=== PATIENT | female | born 1985 | race Caucasian/White ===

== ENCOUNTER 2017-01-18 06:58 | Day surgery (SDC) | payer OTHER ==
--- NOTE | 2017-01-17 22:19 | PREOPHP ---
DATE OF ADMISSION: 01/18/2017 REASON FOR ADMISSION: The patient is to have a kidney biopsy on 01/18/17 CHIEF COMPLAINT: Lower extremity edema. HISTORY OF PRESENT ILLNESS: This 31-year-old female was first seen by me on because of proteinuria and lower extremity swelling. The patient was in her usual state of health until approximately 2 weeks prior to seeing me when she developed lower extremity swelling. The patient, at the time that I saw her, was 25 weeks . This was her first . Prior to seeing me, the patient was found to have significant proteinuria by her automobile sales consultant, Dr. Gerardo. The patient had a 24-hour urine collection which showed 8339 mg of protein in a 24-hour urine collection. At the time the patient first saw me , she was feeling well except for lower extremity edema. She had no headache, visual changes, epigastric pain. She had denied a history of hypertension, prior kidney disease, prior proteinuria, family history of kidney disease. The patient denied a history of diabetes mellitus. The patient, when I first saw her, had normal kidney function. Her serum creatinine was 0.63. The patient also had a normal platelet count, normal liver enzymes and a normal uric acid. Her urinalysis did show 3+ proteinuria with 6 to 10 WBCs per high-power field, 3 to 10 RBCs. The patient was eventually started on furosemide 40 mg a day, Lovenox 40 mg subcutaneous daily, vitamins and aspirin 162 mg a day. The patient eventually went on to 37 weeks' gestation and delivered a baby boy on 01/05/2017 at [facility] by section. During her , the patient was also followed by Dr. Escobar, a perinatologist. I saw the patient last week on 01/12/2017. This was 1 week post-delivery. She had lost 25 pounds but continued to have lower extremity edema. She had a urinalysis done which showed a large amount of protein. She has also developed hypertension. I started her on labetalol 100 mg twice a day which was increased to 200 mg twice a day. The furosemide was increased to 40 mg twice a day. The patient stopped Lovenox and aspirin. PAST MEDICAL HISTORY: Remarkable for nephrotic syndrome, hypertension, lower extremity edema. ALLERGIES: SHE HAS NO KNOWN DRUG ALLERGIES. PAST SURGICAL HISTORY: Nasal septoplasty, 01/05/2017. FAMILY HISTORY: Both parents are alive. Mother has hypertension, hyperlipidemia and breast cancer. SOCIAL HISTORY: The patient does not smoke cigarettes nor drink alcohol. 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 REVIEW OF SYSTEMS: CONSTITUTIONAL: No chills, no fever, no weakness. She has had weight loss since her delivery. OPHTHALMOLOGIC: Negative. EARS, NOSE AND THROAT: Negative. CARDIORESPIRATORY: Negative. She denies any chest pain or shortness of breath. She does have some lower extremity edema. NEUROLOGIC: Occasional headache. UROLOGIC: She denies any dysuria. HEMATOLOGIC: She denies any bleeding. PHYSICAL EXAMINATION: GENERAL: At this time reveals a well-developed female in no apparent distress. VITAL SIGNS: Temperature 98.5, heart rate of 98, blood pressure 140/100. HEAD: Normocephalic. EYES: Extraocular muscles intact. NOSE AND MOUTH: Normal. NECK: Supple, no neck vein distention. LUNGS: Clear to auscultation. HEART: Regular rhythm. No murmurs, gallops or rubs. ABDOMEN: Soft, nontender, no masses or megaly. EXTREMITIES: Pedal edema 3+, pitting edema 3+. NEUROLOGIC: Grossly intact. Cranial nerves intact II-XII. Muscle strength 5/ 5 throughout. Normal gait. No obvious neurologic deficits. IMPRESSION: Nephrotic syndrome, now with acute renal failure. Her latest labs showed a serum creatinine of 2.74 which is an increase from 3 days previous. This represents a decrease in her renal function. The patient is putting out urine, at least 1800 mL of fluid per day on the Lasix. The labetalol is keeping her blood pressure around 140/80. I did recommend to the patient that she have a percutaneous kidney biopsy under CT scan guidance. She agrees. I explained to her the procedure and the potential problems, including bleeding, infection, etc. She agrees to proceed with the biopsy. I told her that once the biopsy is done, then I will probably recommend a large dose of prednisone daily, 40 to 60 mg a day. At that time, hopefully the results of the biopsy will be known and other recommendations can be made. I will follow the patient closely after the surgery and will monitor her renal function, proteinuria, and blood pressure . Dictated By: ОЛЕГ DARNELL MD, ND/ROSY Conf#: [id number] [facility]#: [id number] MTDD
[~2017-01-18] VITALS: Ht 165.1 cm; Wt 88.0 kg
[2017-01-18] MEDS ORDERED: LABE100T3 PO (07:53)
[2017-01-18] MEDS ORDERED: FURO-110 PO (07:54)
[2017-01-18] MEDS ORDERED: HYDR-906 PO (07:57)
[2017-01-18] MEDS ORDERED: ENOX40DI14 SC (07:57)
[2017-01-18] MEDS ORDERED: SOD CHLORIDE 0.9% 1,000 ML IV SCH (08:00)
[2017-01-18 08:13] VITALS: Ht 165.1 cm; Wt 88.0 kg
[2017-01-18 08:18] VITALS: BP 147/95; PULSE 82; RESP 20
[2017-01-18] MEDS ORDERED: LIDOCAINE 1% (MDV) 20 ML INJ ONE ×2 (10:30→11:36)
[2017-01-18] MEDS ORDERED: MIDAZOLAM 1 MG/ML 2 ML INJ ONE ×2 (10:30→12:01)
[2017-01-18] MEDS ORDERED: FENTAnyl 50 MCG/ML VIAL ONE (10:30)
[2017-01-18] MEDS ORDERED: SOD CHLORIDE 0.9% 500 ML ONE (10:31)
[2017-01-18] MEDS ORDERED: GELATIN 12MM X 7 MM SPONGE ONE (12:01)
[2017-01-18 13:13] VITALS: BP 142/99; PULSE 85; RESP 14
[2017-01-18 13:53] VITALS: BP 149/94; PULSE 82; RESP 16
[2017-01-18 15:18] VITALS: BP 150/78; PULSE 73; RESP 16
--- NOTE | 2017-01-18 15:47 | RADRPT ---
PROCEDURE: CT guided right renal biopsy. CLINICAL INDICATION: Medical renal disease. Nephrotic syndrome. TECHNIQUE: Informed consent was obtained. The procedure, risks, benefits, complications and alternatives were explained to the patient. Risks including bleeding and infection were explained. The patient unders tood and was willing to proceed. A procedural pause was performed. The patient's name, date of emanuel h, and procedure to be performed were verified. One or more of the following dose reduction techni ques were used: Automated exposure control, adjustment of the mA and/or kV according to patient size , use of iterative reconstruction technique. Using local anesthetic, sterile technique and CT guidance, an 18-gauge automated core biopsy needle was used to biopsy the lower pole of the right kidney. Multiple passes were made. Adequate tissue was obtained according to the pathologist present during the procedure. Multiple Gelfoam pledgets m ixed with normal saline were then embolized through the outer cannula of the biopsy needle into the biopsy tract while the needle was removed. A postprocedural scan was performed. A dressing was applied. The patient tolerated procedure well. COMPARISON: None. FINDINGS: Initial images demonstrate the tip of the needle at the posterior margin of the lower pole of the ri ght kidney. Post biopsy images demonstrate no immediate complication. The Gelfoam is noted in the biopsy tract. IMPRESSION: 1. Successful CT guided biopsy of the right kidney for medical renal disease. RPTAT: QQ .Jaden Martini MD, Date Time Electronically viewed and signed by .Jaden Martini MD, MD on 01/18/2017 15:47 .R/
--- NOTE | 2017-01-19 09:46 | PREOPHP ---
DATE OF ADMISSION: 01/18/2017 This patient is being admitted electively on 01/18/2017 for a kidney biopsy. CHIEF COMPLAINT: Lower extremity swelling. HISTORY OF PRESENT ILLNESS: This 31-year-old female was first seen by me on 10/13/2016 because of p roteinuria and lower extremity swelling. The patient was in her usual state of health until 2 weeks prior to seeing me, when she developed some lower extremity swelling. The patient, at the time I s aw her, was 25 weeks . This was her first . She was found to have proteinuria. S he had a 24-hour urine protein done by her [employer] commerce consultant, Dr. Gerardo, which showed 8339 mg of prote in per 24 hours. At the time I saw the patient, she was feeling well except for the lower extremity edema. She had no headache, visual changes, epigastric pains. She denied a history of hypertensio n, prior kidney disease, family history of kidney disease or history of diabetes mellitus. The ishan ent had normal renal function when I initially saw her. Her serum creatinine was 0.63. She also reyes d a normal platelet count, normal liver enzymes, normal uric acid. Her urinalysis did show 3+ prote inuria with 6 to 10 WBCs, 3 to 10 RBCs. The patient was eventually started on furosemide 40 mg a da y, Lovenox 40 mg subQ daily, vitamins, aspirin 162 mg a day. She was eventually able to go on to a 37-week gestation and delivered a baby boy on 01/05/2017 at [facility] by section. The patient was also followed during her by Dr. Escobar, perinatologist. The patient was seen by me last week on 01/12/2017. She was 1 week post-delivery. She had lost 25 pounds, but con tinued to have lower extremity edema. She continues to have a large amount of proteinuria and has a lso developed hypertension. When I saw her last week, she was started on labetalol 100 mg twice a d ay. The furosemide was increased to 40 mg twice a day. PAST MEDICAL HISTORY: Remarkable for nephrotic syndrome. ALLERGIES: SHE HAS NO KNOWN DRUG ALLERGIES. PAST SURGICAL HISTORY: Septoplasty, 01/05/2017. FAMILY HISTORY: Both parents are alive. Mother has hypertension, hyperlipidemia and breast cancer. SOCIAL HISTORY: The patient does not smoke cigarettes or drink alcohol. 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 REVIEW OF SYSTEMS: CONSTITUTIONAL: No chills, no fever, no weakness. She has had weight loss since the delivery of th e baby. OPHTHALMOLOGIC: Negative. EARS, NOSE AND THROAT: Negative. CARDIORESPIRATORY: Negative. She does have lower extremity edema. NEUROLOGIC: Negative. UROLOGIC: She denies any dysuria. PHYSICAL EXAMINATION: GENERAL: At this time, reveals a well-developed female in no apparent distress. VITAL SIGNS: Temperature 98.5, heart rate 98, blood pressure 140/100. HEAD: Normocephalic. EYES: Extraocular muscles intact. NOSE AND MOUTH: Normal. NECK: Supple. No neck vein distention. LUNGS: Clear to auscultation. HEART: Regular rhythm. No murmurs, gallops or rubs. ABDOMEN: Soft, nontender. No masses or megaly. EXTREMITIES: 3+ pedal edema. NEUROLOGIC: Grossly intact. No obvious neurologic deficits. IMPRESSION: This patient continues to have nephrotic syndrome with significant proteinuria, low ser um albumin and edema. Her blood pressure has also started to increase. She does have occasional he adaches, but no other signs or symptoms of preeclampsia. I recommended to the patient that she have laboratory tests done. Those laboratory tests were done last week and showed a serum creatinine of 2.44, which shows an increase from previous and therefore a decrease in her renal function. I addi mmended to her that she have laboratory tests repeated on 01/16/2017, and her serum creatinine is no w up to 2.74. She is putting out about 1800 mL of fluid per day on Lasix. The labetalol is keeping her blood pressure around 140/80. I have recommended to her that she have a kidney biopsy done. S he is agreeable. This can hopefully be done on 01/18/2017. I also told her that after she has the biopsy, that I wanted to start her on high-dose prednisone in anticipation of the kidney biopsy. 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 Possible pathologies could be min imal change disease, membranous nephropathy, mesangial proliferative disease, focal segmental glomer ulosclerosis. PLAN: Arrange for patient to have outpatient kidney biopsy by CT scan guidance at [facility] as soon as it can be arranged. Dictated By: ОЛЕГ DARNELL MD, ND/ROSY Conf#: [id number] [facility]#: [id number]
== END 2017-01-26 10:10 | disposition home or self-care (01) ==
LOC: SDS 06:58
PROVIDERS: ATTEND Internal Medicine
DX: N17.9 Acute kidney failure, unspecified (principal); N04.9 Nephrotic syndrome with unspecified morphologic changes; R80.9 Proteinuria, unspecified; R60.0 Localized edema
CPT/HCPCS: 50200; 77012; J2250; J3010; J7040